=== PATIENT | female | born 1990 | race Caucasian/White ===

== ENCOUNTER 2018-04-04 17:04 | Emergency (ER) | payer MEDICAID, OTHER ==
[~2018-04-04] VITALS: Ht 157.5 cm; Wt 68.0 kg
[2018-04-04 17:14] VITALS: BP 115/77
--- NOTE | 2018-04-04 17:20 | NUR ---
PT AMBULATES TO BED 7, REPORT GIVEN TO KEKE HOBSON
--- NOTE | 2018-04-04 17:22 | NUR ---
27Y/F BIB SELF C/O HEAD ACHE OCCIPITAL AREA, LT ELBOW PAIN/ABRASION S/P FALL/TRIP WITH DIZZINESS; DENIES ALOC. AAOX4 WITH EVEN AND STEADY GAIT; PATIENT STATES PAIN OF 8/10 AT THIS TIME; VSS; PATIENT POSITIONED FOR COMFORT; HOB ELEVATED; BEDRAILS UP X1; BED DOWN. ER MD MADE AWARE OF PT STATUS.
--- NOTE | 2018-04-04 17:30 | NUR ---
Patient being evaluated by physician at bedside.
[2018-04-04 18:49] VITALS: BP 114/75
--- NOTE | 2018-04-04 18:49 | NUR ---
Patient discharged with v/s stable. Written and verbal after care instructions given and explained. Patient verbalized understanding. Ambulatory with steady gait. All questions addressed prior to discharge. Advised to follow up with PMD.
== END 2018-04-04 18:49 | disposition home or self-care (01) ==
LOC: MED 17:04
DX: S00.03XA Contusion of scalp, initial encounter (principal); W01.0XXA Fall on same level from slipping, tripping and stumbling without subsequent striking against object, initial encounter; Y93.89 Activity, other specified; Y99.8 Other external cause status; Y92.89 Other specified places as the place of occurrence of the external cause
CPT/HCPCS: 99283

== ENCOUNTER 2018-05-30 13:27 | Emergency (ER) | payer MEDICAID, OTHER ==
[~2018-05-30] VITALS: Ht 157.5 cm; Wt 68.0 kg
--- NOTE | 2018-05-30 13:34 | NUR ---
PT AMBULATES TO BED 5
[2018-05-30 13:37] VITALS: BP 119/77
[2018-05-30] MEDS ORDERED: KETOROLAC 30 MG/ML VIAL IM ONE (13:55)
[2018-05-30] MEDS ORDERED: LORazepam 2 MG/ML VIAL IM ONE (13:55)
[2018-05-30 14:53] VITALS: BP 129/79
--- NOTE | 2018-05-30 14:54 | NUR ---
Patient discharged with v/s stable. Written and verbal after care instructions given and explained. Patient alert, oriented and verbalized understanding of instructions. Ambulatory with steady gait. All questions addressed prior to discharge. ID band removed. Patient advised to follow up with PMD. Rx of MOTRIN AND ROBAXIN given. Patient educated on indication of medication including possible reaction and side effects. Opportunity to ask questions provided and answered.
== END 2018-05-30 14:54 | disposition home or self-care (01) ==
LOC: MED 13:27
DX: G44.209 Tension-type headache, unspecified, not intractable (principal); M54.2 Cervicalgia; H53.8 Other visual disturbances
CPT/HCPCS: 70450; 96372; 99284; J1885; J2060

== ENCOUNTER 2019-01-11 13:09 | Emergency (ER) | payer OTHER ==
[~2019-01-11] VITALS: Ht 157.5 cm; Wt 65.8 kg
[2019-01-11 13:09] VITALS: BP 131/73
--- NOTE | 2019-01-11 14:13 | NUR ---
PT AMBULATED TO BED 3
--- NOTE | 2019-01-11 14:22 | NUR ---
PT BIB BOYFRIEND TO THE ED WITH THE CHIEF C/O ANXIETY X TODAY. NO FEELING OF SELF HURTING. HX OF ANXIETY. NOT TAKING ANY MEDS FOR ANXIETY CURRENTLY. 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 DENIES ANY OTHER PROBLEMS AT THIS TIME. VSS. ER MD AWARE.
[2019-01-11 16:04] LABS: BASOPHILS # (AUTO) 0.1 K/uL (0.00-0.22); BASOPHILS % (AUTO) 0.8 % (0.0-2.0); EOSINOPHILS # (AUTO) 0.1 K/uL (0-0.4); EOSINOPHILS % (AUTO) 1.2 % (0.0-4.0); HEMATOCRIT 40.3 % (36-48); HEMOGLOBIN 13.3 g/dL (12.0-16.0); LYMPHOCYTES # (AUTO) 1.6 K/uL (2.5-16.5); LYMPHOCYTES % (AUTO) 18.3 % (20.5-51.1); MEAN CORPUSCULAR HEMOGLOBIN 30 pg (27-31); MEAN CORPUSCULAR HGB CONC 33 g/dL (33-37); MEAN CORPUSCULAR VOLUME 91.4 fL (80-94); MONOCYTES # (AUTO) 0.5 K/uL (0.8-1.0); MONOCYTES % (AUTO) 5.6 % (1.7-9.3); NEUTROPHILS # (AUTO) 6.6 K/uL (1.8-7.7); NEUTROPHILS % (AUTO) 74.1 % (42.2-75.2); PLATELET COUNT (AUTO) 440 K/uL (140-450); RED BLOOD CELL COUNT(AUTO) 4.41 MIL/uL (4.20-5.40); RED CELL DISTRIBUTION WIDTH 13.4 % (11.6-13.7); WHITE BLOOD COUNT (AUTO) 8.9 K/uL (4.8-10.8)
--- NOTE | 2019-01-11 16:08 | NUR ---
TAKEN FOR X-RAY.
[2019-01-11 16:22] LABS: ANION GAP 11.3 (8-16); CARBON DIOXIDE 26.9 mmol/L (21-32); CREATININE 0.7 mg/dL (0.6-1.3); POTASSIUM 4.2 mmol/L (3.5-5.1)
[2019-01-11 16:27] LABS: ALBUMIN 3.6 g/dL (3.4-5.0); TOTAL BILIRUBIN 0.2 mg/dL (0.0-1.0)
--- NOTE | 2019-01-11 16:46 | NUR ---
NO SOB OR ACUTE RESPIRATORY DISTRESS NOTED. DENIES CHEST PAIN. HR 91, SPO2 995 IN ROOM AIR. BP 100/57.
[2019-01-11 18:26] VITALS: BP 106/72
== END 2019-01-11 18:26 | disposition home or self-care (01) ==
LOC: MED 13:09
DX: F41.9 Anxiety disorder, unspecified (principal)
CPT/HCPCS: 36415; 71046; 80053; 83690; 85025; 93005; 99284

== ENCOUNTER 2019-02-21 22:44 | Emergency (ER) | payer OTHER ==
[~2019-02-21] VITALS: Ht 157.5 cm; Wt 76.2 kg
[2019-02-21 22:49] VITALS: BP 112/76
[2019-02-22 00:42] VITALS: BP 112/76
--- NOTE | 2019-02-22 02:05 | NUR ---
CALLED PATIENT NO RESPONSE AT THIS TIME.
--- NOTE | 2019-02-22 02:25 | NUR ---
PATIENT CALLED NO RESPONSE AT THIS TIME.
--- NOTE | 2019-02-22 02:45 | NUR ---
PATIENT CALLED, NO RESPONSE.
== END 2019-02-22 02:05 | disposition left against medical advice (07) ==
LOC: MED 22:44
DX: R10.30 Lower abdominal pain, unspecified (principal); Z53.21 Procedure and treatment not carried out due to patient leaving prior to being seen by health care provider

== ENCOUNTER 2019-04-25 20:00 | Emergency (ER) | payer MEDICAID, OTHER ==
[~2019-04-25] VITALS: Ht 157.5 cm; Wt 78.0 kg
[2019-04-25 20:09] VITALS: BP 135/98
--- NOTE | 2019-04-25 20:11 | NUR ---
TO LOBBY AWATING BED IN ED. NO DISTRESS NOTED.
--- NOTE | 2019-04-25 20:20 | NUR ---
VERBAL ORDER RECIEVED FOR CT HEAD FROM ER MD LEE.
--- NOTE | 2019-04-25 20:59 | NUR ---
PT REFUSING CT SCAN. ER AWARE.
--- NOTE | 2019-04-25 21:10 | NUR ---
PT C/O OF TINGLING/NUMBNESS, PIN NEEDLE FEELING IN THE BACK OF HEAD SINCE LAST NIGHT. PT STATES THAT "THIS FEELING LASTS A COUPLE SECONDS AND THEN GOES AWAY." DENIES ANY VISION PROBLEMS OR DIZZINESS. NO N/V/D. NO MED HX. SAFETY MEASURES IN PLACE. WAITING FOR ERMD TO EVALUATE PT.
--- NOTE | 2019-04-25 22:03 | NUR ---
PT RETURNED FROM CT VIA WC. PT AMBULATED TO BED.
[2019-04-25 22:42] VITALS: BP 135/98
--- NOTE | 2019-04-25 22:55 | NUR ---
Patient discharged with v/s stable. Written and verbal after care instructions given and explained. PT MADE AWARE TO REST AND TAKE OTC MEDICATIONS NEEDED FOR PAIN. Patient verbalized understanding. Ambulatory with steady gait. All questions addressed prior to discharge. Advised to follow up with PMD.
== END 2019-04-25 22:42 | disposition home or self-care (01) ==
LOC: MED 20:00
DX: R20.2 Paresthesia of skin (principal)
CPT/HCPCS: 70450; 72125; 81025; 99284

== ENCOUNTER 2019-05-10 15:19 | Emergency (ER) | payer MEDICAID ==
[~2019-05-10] VITALS: Ht 157.5 cm; Wt 77.1 kg
[2019-05-10 15:27] VITALS: BP 119/54
[2019-05-10] MEDS ORDERED: ONDANSETRON 4 MG ODT PO ONE ×2 (16:10→17:20)
[2019-05-10] MEDS ORDERED: IBUPROFEN 800 MG TAB PO ONE (16:10)
[2019-05-10 16:30] VITALS: BP 119/54
== END 2019-05-10 16:30 | disposition home or self-care (01) ==
LOC: MED 15:19
DX: H61.23 Impacted cerumen, bilateral (principal); J06.9 Acute upper respiratory infection, unspecified; R11.10 Vomiting, unspecified
CPT/HCPCS: 69209; 99284; Q0162

== ENCOUNTER 2019-05-19 23:13 | Emergency (ER) | payer MEDICAID ==
[~2019-05-19] VITALS: Ht 157.5 cm; Wt 76.2 kg
[2019-05-19 23:26] VITALS: BP 114/63
--- NOTE | 2019-05-19 23:26 | NUR ---
TO BED # 04 AMBULATORY
--- NOTE | 2019-05-19 23:47 | NUR ---
PT PRESENTS TO THE ED WITH C/O LOWER ABD PAIN. NO S/S OF DISTRESS AT THIS TIME. PT DENIES NAUSEA, VOMITING OR DIARRHEA. BOWEL SOUNDS PRESENT ON ALL QUADRANTS. NO TENDERNESS WITH PALPAPTION. PATIENT DENIES ANY OTHER MEDICAL HX.
--- NOTE | 2019-05-20 01:06 | NUR ---
PT RESTING IN BED, NO S/S DISTRESS. STATES ONLY MILD PAIN NOW /.
[2019-05-20 02:57] VITALS: BP 104/67
== END 2019-05-20 02:57 | disposition home or self-care (01) ==
LOC: MED 23:13
DX: R10.30 Lower abdominal pain, unspecified (principal); R50.9 Fever, unspecified
CPT/HCPCS: 81002; 81025; 99283

== ENCOUNTER 2019-07-02 19:25 | Emergency (ER) | payer MEDICAID ==
[~2019-07-02] VITALS: Ht 157.5 cm; Wt 78.1 kg
[2019-07-02 19:46] VITALS: BP 104/67
--- NOTE | 2019-07-02 19:53 | NUR ---
PT AMBULATES TO WITH STEADY GAIT TO PROVIDE URINE SAMPLE. PT INSTRUCTED TO RETURN TO LOBBY. AWAITING AVAILABLE BED.
--- NOTE | 2019-07-02 19:58 | NUR ---
PT AMBULATED TO BED 07 WITH STEADY GAIT.
--- NOTE | 2019-07-02 20:20 | NUR ---
28 Y/O FEMALE C/O DIZZINESS, LIGHT HEADEDNESS AND FATIGUE THAT COMES AND GOES X 6 DAYS. PT ALSO STATES "I'VE BEEN SPOTTING BUT ITS NOT MY PERIOD YET." ALSO C/O LOWER ABD CRAMPING THAT COMES AND GOES. PT DENIES ANY PAIN OR DIZZINESS AT THIS TIME. PT STATES "I GOT WORRIED SO I JUST WANT TO COME GET CHECKED OUT". PT. A/O X4 AND FOLLOWS COMMANDS. PERRLA +3. PT STATES SHE TOOK A TEST AT HOME X 3 DAYS AGO-- NEGATIVE. ERMD MADE AWARE OF STATUS. SIDE RAILSX1 PMH--DENIES RX-- DENIES
--- NOTE | 2019-07-02 20:40 | NUR ---
Jr milian in [facility] - 07/02/[address] Briceño examining patient.
--- NOTE | 2019-07-02 20:41 | NUR ---
ERMD AT BEDSIDE.
[2019-07-02 20:55] VITALS: BP 122/70
== END 2019-07-02 20:55 | disposition home or self-care (01) ==
LOC: MED 19:25
DX: R42 Dizziness and giddiness (principal); N93.8 Other specified abnormal uterine and vaginal bleeding
CPT/HCPCS: 81002; 81025; 99283

== ENCOUNTER 2019-10-12 09:32 | Emergency (ER) | payer MEDICAID, OTHER ==
[~2019-10-12] VITALS: Ht 157.5 cm; Wt 70.3 kg
[2019-10-12 09:46] VITALS: BP 111/70
--- NOTE | 2019-10-12 09:46 | NUR ---
Patient ambulated to bed 11. RN evaluating patient at bedside.
--- NOTE | 2019-10-12 09:52 | NUR ---
29/F presents to ED with complaints of lower abd pain, lower back pain since yesterday. Pt also c/o having a cough, and headache since yesterday. Patient denies any N/V/D. Pt states she was unsure if she had a fever or not. Patient denies taking medications at home. Denies medical hx.
[2019-10-12 10:26] LABS: BILIRUBIN,URINE NEGATIVE (NEGATIVE); BLOOD, URINE NEGATIVE (NEGATIVE); COLOR,URINE YELLOW (YELLOW); LEUKOCYTE ESTERASE ,URINE 1+ (NEGATIVE); NITRITE, URINE NEGATIVE (NEGATIVE); PH,URINE 6.5 (5.0-9.0); UGLUCOSE NEGATIVE (NEGATIVE)
[2019-10-12 10:27] LABS: APPEARANCE,URINE SLIGHTLY HAZY (CLEAR)
[2019-10-12 10:34] LABS: RBC,URINE 0-5 /HPF (0-5); WBC,URINE 0-5 /HPF (0-5)
[2019-10-12] MEDS ORDERED: KETOROLAC 60 MG/2 ML VIAL IM ONE (11:30)
[2019-10-12 12:09] VITALS: BP 111/70
--- NOTE | 2019-10-12 12:09 | NUR ---
Patient discharged with v/s stable. Written and verbal after care instructions given and explained. Patient alert, oriented and verbalized understanding of instructions. Ambulatory with steady gait. All questions addressed prior to discharge. ID band removed. Patient advised to follow up with PMD. Rx of motrin,cipro given. Patient educated on indication of medication including possible reaction and side effects. Opportunity to ask questions provided and answered.
== END 2019-10-12 12:09 | disposition home or self-care (01) ==
LOC: MED 09:32
DX: N39.0 Urinary tract infection, site not specified (principal)
CPT/HCPCS: 81001; 87086; 96372; 99283; J1885

== ENCOUNTER 2019-12-19 13:41 | Emergency (ER) | payer OTHER ==
[~2019-12-19] VITALS: Ht 157.5 cm; Wt 72.1 kg
[2019-12-19 13:49] VITALS: BP 124/78
[2019-12-19 14:31] VITALS: BP 124/78
== END 2019-12-19 14:32 | disposition home or self-care (01) ==
LOC: MED 13:41
DX: J06.9 Acute upper respiratory infection, unspecified (principal)
CPT/HCPCS: 99283

== ENCOUNTER 2020-02-05 14:31 | Emergency (ER) | payer OTHER ==
[~2020-02-05] VITALS: Ht 157.5 cm; Wt 73.0 kg
[2020-02-05 14:31] VITALS: BP 148/64
--- NOTE | 2020-02-05 14:31 | NUR ---
29/F presents ambulatory to ED, was referred by urgent care. Pt is , LMP 12/11/2019, A0. Brown vaginal discharge/spotting x1 day. Denies n/v/d or dysuria. Denies pain. Pt awake and alert, skin normal color warm and dry, rr even and unlabored. Denies med hx or rx.
--- NOTE | 2020-02-05 14:31 | NUR ---
Pt triaged. Negative screening for covid-19. Sent back to lobby awaiting for bed
--- NOTE | 2020-02-05 15:50 | NUR ---
Pt taken to US
[2020-02-05 16:44] LABS: BASOPHILS # (AUTO) 0.1 K/uL (0.00-0.22); BASOPHILS % (AUTO) 0.5 % (0.0-2.0); EOSINOPHILS # (AUTO) 0.1 K/uL (0-0.4); EOSINOPHILS % (AUTO) 1.2 % (0.0-4.0); HEMATOCRIT 40.8 % (36-48); HEMOGLOBIN 13.7 g/dL (12.0-16.0); LYMPHOCYTES # (AUTO) 1.5 K/uL (2.5-16.5); LYMPHOCYTES % (AUTO) 16.1 % (20.5-51.1); MEAN CORPUSCULAR HEMOGLOBIN 31 pg (27-31); MEAN CORPUSCULAR HGB CONC 34 g/dL (33-37); MEAN CORPUSCULAR VOLUME 93.7 fL (80-94); MONOCYTES # (AUTO) 0.5 K/uL (0.8-1.0); MONOCYTES % (AUTO) 5.8 % (1.7-9.3); NEUTROPHILS # (AUTO) 7.1 K/uL (1.8-7.7); NEUTROPHILS % (AUTO) 76.4 % (42.2-75.2); PLATELET COUNT (AUTO) 403 K/uL (140-450); RED BLOOD CELL COUNT(AUTO) 4.36 MIL/uL (4.20-5.40); RED CELL DISTRIBUTION WIDTH 13.5 % (11.6-13.7); WHITE BLOOD COUNT (AUTO) 9.3 K/uL (4.8-10.8)
[2020-02-05 17:08] LABS: ALBUMIN 3.8 g/dL (3.4-5.0); ANION GAP 13.4 (8-16); CARBON DIOXIDE 25.6 mmol/L (21-32); CREATININE 0.8 mg/dL (0.6-1.3); TOTAL BILIRUBIN 0.3 mg/dL (0.0-1.0)
--- NOTE | 2020-02-05 17:11 | NUR ---
Female Asphalt Blender (myself) accompanied GEENA ROBERTS for patient Pelvic Exam.
--- NOTE | 2020-02-05 17:15 | NUR ---
PER DR. ABBASI HAVE PT WAIT IN LOBBY AFTER PELVIC EXAM
--- NOTE | 2020-02-05 17:15 | NUR ---
VAGINAL SWAB SAMPLES (2) AND URINE SAMPLE HANDED TO TRAUMA PROGRAM MANAGER
[2020-02-05 18:06] LABS: APPEARANCE,URINE CLEAR (CLEAR); BILIRUBIN,URINE NEGATIVE (NEGATIVE); BLOOD, URINE 2+ (NEGATIVE); COLOR,URINE YELLOW (YELLOW); LEUKOCYTE ESTERASE ,URINE 1+ (NEGATIVE); NITRITE, URINE NEGATIVE (NEGATIVE); UGLUCOSE NEGATIVE (NEGATIVE)
[2020-02-05 18:26] VITALS: BP 104/89
[2020-02-05 22:22] LABS: RBC,URINE 0-5 /HPF (0-5); WBC,URINE 0-5 /HPF (0-5)
== END 2020-02-05 18:27 | disposition home or self-care (01) ==
LOC: MED 14:31
DX: O34.81 Maternal care for other abnormalities of pelvic organs, first trimester (principal); N83.201 Unspecified ovarian cyst, right side; O23.41 Unspecified infection of urinary tract in pregnancy, first trimester; Z3A.01 Less than 8 weeks gestation of pregnancy
CPT/HCPCS: 36415; 76817; 80053; 81001; 84702; 85025; 86900; 86901; 87070; 87086; 87110; 87205; 87210; 87299; 99284; Q0092

== ENCOUNTER 2020-11-10 12:23 | Emergency (ER) | payer OTHER ==
[~2020-11-10] VITALS: Ht 157.5 cm; Wt 63.5 kg
[2020-11-10 12:34] VITALS: BP 144/88
--- NOTE | 2020-11-10 12:36 | NUR ---
PT AMBULATED TO BED 7.
[2020-11-10] MEDS ORDERED: DICYCLOMINE HCL LIQUID 20 MG, ALUMINUM HYD/MAG/SIMETHICONE 30 ML, LIDOCAINE VISCOUS 2% ... PO ONE ×3 (13:05)
[2020-11-10] MEDS ORDERED: DICYCLOMINE HCL LIQUID 10 MG/5 ML UDC ONE (13:09)
[2020-11-10] MEDS ORDERED: ALUMINUM HYD/MAG/SIMETHICONE 30 ML UDC ONE (13:09)
[2020-11-10] MEDS ORDERED: LIDOCAINE VISCOUS 2% 20 ML UDC ONE (13:09)
--- NOTE | 2020-11-10 13:13 | NUR ---
PT REPORTS NO PAIN AT THIS TIME. DECLINED GI COCKTAIL. AWARE.
[2020-11-10 13:34] LABS: BASOPHILS % (AUTO) 0.3 % (0.0-2.0); EOSINOPHILS # (AUTO) 0.5 K/uL (0-0.4); EOSINOPHILS % (AUTO) 8.7 % (0.0-4.0); HEMATOCRIT 42.3 % (36-48); LYMPHOCYTES # (AUTO) 1.6 K/uL (2.5-16.5); LYMPHOCYTES % (AUTO) 28.4 % (20.5-51.1); MEAN CORPUSCULAR HEMOGLOBIN 30 pg (27-31); MEAN CORPUSCULAR HGB CONC 33 g/dL (33-37); MEAN CORPUSCULAR VOLUME 92.1 fL (80-94); MONOCYTES # (AUTO) 0.4 K/uL (0.8-1.0); MONOCYTES % (AUTO) 7.2 % (1.7-9.3); NEUTROPHILS # (AUTO) 3.1 K/uL (1.8-7.7); NEUTROPHILS % (AUTO) 55.4 % (42.2-75.2); PLATELET COUNT (AUTO) 326 K/uL (140-450); RED CELL DISTRIBUTION WIDTH 14.4 % (11.6-13.7); WHITE BLOOD COUNT (AUTO) 5.6 K/uL (4.8-10.8)
[2020-11-10 13:51] LABS: ALBUMIN 3.7 g/dL (3.4-5.0); ANION GAP 10.9 (8-16); CARBON DIOXIDE 28.1 mmol/L (21-32); CREATININE 0.7 mg/dL (0.6-1.3); TOTAL BILIRUBIN 0.4 mg/dL (0.0-1.0)
[2020-11-10] MEDS ORDERED: KETOROLAC 15 MG/ML VIAL IM ONE (14:25)
[2020-11-10 14:44] VITALS: BP 144/88
--- NOTE | 2020-11-10 14:45 | NUR ---
Patient discharged with v/s stable. Written and verbal after care instructions given and explained. Patient alert, oriented and verbalized understanding of instructions. Ambulatory with steady gait. All questions addressed prior to discharge. ID band removed. Patient advised to follow up with PMD. Rx of MYLANTA, ACETAMINOPHEN given. Patient educated on indication of medication including possible reaction and side effects. Opportunity to ask questions provided and answered.
== END 2020-11-10 14:45 | disposition home or self-care (01) ==
LOC: MED 12:23
DX: R10.10 Upper abdominal pain, unspecified (principal); E07.9 Disorder of thyroid, unspecified
CPT/HCPCS: 36415; 80053; 81025; 83690; 85025; 96372; 99283; J1885

== ENCOUNTER 2021-11-02 10:28 | Emergency (ER) | payer OTHER ==
[~2021-11-02] VITALS: Ht 157.5 cm; Wt 61.2 kg
[2021-11-02 10:30] VITALS: BP 122/76
--- NOTE | 2021-11-02 10:34 | NUR ---
PT TO WAIT IN LOBBY
[2021-11-02 13:06] VITALS: BP 108/70
== END 2021-11-02 13:06 | disposition home or self-care (01) ==
LOC: MED 10:28
DX: S09.90XA Unspecified injury of head, initial encounter (principal); W19.XXXA Unspecified fall, initial encounter; Y93.89 Activity, other specified; Y92.89 Other specified places as the place of occurrence of the external cause; Y99.8 Other external cause status
CPT/HCPCS: 99281

== ENCOUNTER 2022-12-07 08:33 | Emergency (ER) | payer OTHER ==
[~2022-12-07] VITALS: Ht 157.5 cm; Wt 67.1 kg
[2022-12-07 08:37] VITALS: BP 123/77
--- NOTE | 2022-12-07 08:46 | NUR ---
PT AMB TO BED 12. COVID, FLU SWABS DONE.
--- NOTE | 2022-12-07 08:48 | NUR ---
32/F WALKED IN C/O COUGH, CHILLS, BODY ACHES, SORE THROAT X 2 DAYS. PMH: HEP A
[2022-12-07] MEDS ORDERED: IBUP-1842 PO (09:06)
[2022-12-07] MEDS ORDERED: PROM473S5 PO (09:06)
== END 2022-12-07 09:10 | disposition home or self-care (01) ==
LOC: MED 08:33
DX: B34.9 Viral infection, unspecified (principal); Z20.822 Contact with and (suspected) exposure to COVID-19; Z86.39 Personal history of other endocrine, nutritional and metabolic disease; Z79.899 Other long term (current) drug therapy; Z79.1 Long term (current) use of non-steroidal anti-inflammatories (NSAID)
CPT/HCPCS: 99283

== ENCOUNTER 2023-02-19 14:29 | Emergency (ER) | payer OTHER ==
[~2023-02-19] VITALS: Ht 157.5 cm; Wt 70.3 kg
[~2023-02-19 14:29] MED LIST: IBUP-1842 PO; PROM473S5 PO
[2023-02-19 15:38] VITALS: BP 105/75
--- NOTE | 2023-02-19 17:18 | NUR ---
PT. NOT FOUND IN LOBBY. CALLED PT.S NAME OUTSIDE ER. CHECKED BATHROOMS. PT. NOT FOUND. PT. LEFT WITHOUT D/C OR AFTERCARE INSTRUCTIONS
== END 2023-02-19 17:16 | disposition home or self-care (01) ==
LOC: MED 14:29
DX: F41.9 Anxiety disorder, unspecified (principal); R06.02 Shortness of breath; Z79.899 Other long term (current) drug therapy
CPT/HCPCS: 99281